=== PATIENT | male | born 1970 | race Two or more races ===

== ENCOUNTER 2018-05-15 04:10 | Emergency (ER) | payer OTHER ==
[~2018-05-15] VITALS: Ht 167.6 cm; Wt 68.6 kg
[2018-05-15] MEDS ORDERED: SODIUM CHLORIDE FLUSH 10ML SYR IVF ONE (05:30)
[2018-05-15] MEDS ORDERED: ONDANSETRON 2MG/ML, 2ML IVPush ONE (05:30)
[2018-05-15] MEDS ORDERED: MAALOX/HYOSCYAMINE/LIDOCAINE 45 ML BTL PO ONE (05:30)
[2018-05-15] MEDS ORDERED: FAMOTIDINE 20 MG/2 ML IVP ONE (05:30)
[2018-05-15] MEDS ORDERED: ONDANSETRON 2MG/ML, 2ML ONE (05:38)
[2018-05-15] MEDS ORDERED: FAMOTIDINE 20 MG/2 ML ONE (05:38)
[2018-05-15] MEDS ORDERED: MAALOX/HYOSCYAMINE/LIDOCAINE 45 ML BTL ONE (05:38)
[2018-05-15 05:49] VITALS: BP 125/84
--- NOTE | 2018-05-15 05:53 | NUR ---
PT MEDICATED PER JUN. POC DISCUSSED. PT AWARE A UA IS NEEDED. PT GIVEN URINAL.
[2018-05-15 06:30] LABS: BASOPHILS # (AUTO) 0.02 x10^3/uL (0-0.1); BASOPHILS % (AUTO) 0 % (0-1); EOSINOPHILS # (AUTO) 0.11 x10^3/uL (0-0.4); EOSINOPHILS % (AUTO) 2 % (1-7); LYMPHOCYTES # (AUTO) 1.51 x10^3/uL (1-3.4); LYMPHOCYTES % (AUTO) 26 % (22-44); MD NO; MEAN CORPUSCULAR HGB CONC 34.1 g/dL (33.2-36.2); MEAN CORPUSCULAR VOLUME 90.8 fL (81-97); MEAN PLATELET VOLUME 8.4 fL (7.4-10.4); MONOCYTES # (AUTO) 0.99 x10^3/uL (0.2-0.8); MONOCYTES % (AUTO) 17 % (2-9); NEUTROPHILS % (AUTO) 55 % (42-75); PLATELET COUNT 261 x10^3/uL (130-400); RED BLOOD COUNT 5.37 x10^6/uL (4.38-5.82); RED CELL DISTRIBUTION WIDTH 13.4 % (9.4-14.8)
[2018-05-15 06:32] LABS: CHLORIDE 104 mmol/L (98-107)
[2018-05-15 06:38] LABS: ALANINE AMINOTRANSFERASE 43 U/L (12-78); ALBUMIN 3.7 g/dL (3.4-5.0); ALKALINE PHOSPHATASE 71 U/L (45-117); ANION GAP 9 mmol/L (5-15); BILIRUBIN,TOTAL 0.9 mg/dL (0.2-1.0); CALCIUM 9.2 mg/dL (8.5-10.1); CREATININE 0.85 mg/dL (0.7-1.3); TOTAL PROTEIN 7.9 g/dL (6.4-8.2)
--- NOTE | 2018-05-15 06:52 | NUR ---
PT STATES FEELING BETTER BUT STILL UNABLE TO PROVIDE UA. MD STATES OKAY WITH NO UA. PT TO BE DISCHARGED.
--- NOTE | 2018-05-15 06:55 | NUR ---
[facility] HAND-OFF REPORT RECEIVED FROM PHANI REID. ASSUMED CARE OF PATIENT.
== END 2018-05-15 08:09 | disposition home or self-care (01) ==
LOC: ED 07:57
DX: K29.70 Gastritis, unspecified, without bleeding (principal); Z87.19 Personal history of other diseases of the digestive system
CPT/HCPCS: 36415; 80053; 83690; 85025; 93005; 96374; 96375; 99284; J2405; J3490

== ENCOUNTER 2018-11-20 17:26 | Emergency (ER) | payer OTHER ==
[~2018-11-20] VITALS: Ht 167.6 cm; Wt 64.2 kg
[2018-11-20 17:34] VITALS: BP 126/80
== END 2018-11-20 18:31 | disposition home or self-care (01) ==
LOC: ED 17:48
DX: S83.91XA Sprain of unspecified site of right knee, initial encounter (principal); F17.200 Nicotine dependence, unspecified, uncomplicated; V02.90XA Pedestrian on foot injured in collision with two- or three-wheeled motor vehicle, unspecified whether traffic or nontraffic accident, initial encounter; Y93.89 Activity, other specified; Y92.410 Unspecified street and highway as the place of occurrence of the external cause; Y99.8 Other external cause status
CPT/HCPCS: 29505; 99283